=== PATIENT | female | born 1990 | race Caucasian/White ===

== ENCOUNTER 2020-11-11 16:22 | Inpatient (IN) | payer BC ==
--- OUTSIDE RECORDS SUMMARY | 2020-11-11 16:28 | XMS REPORT | Continuity of Care Document ---
:[address] [facility] [place], [place] t Address [address] [place] [address] Care Team Providers Name Role Phone Lab, Fam Pob I Attending Clinician Unavailable Doctor Unassigned, Name Attending Clinician Unavailable Payers Payer Name Policy Type Policy Number Effective Date Expiration Date S ource Problems This patient has no known problems. Allergies, Adverse Reactions, Alerts This patient has no known allergies or adverse reactions. Medications This patient has no known medications. Procedures This patient has no known procedures. Encounters Start End Encounter Admission Attending Care Care Encounter Source Date/Time Date/Time Type Type Clinicians Facility Department ID 2020-04-27 2020-04-27 Laboratory Lab, [facility] [id number] 12:57:24 13:17:24 Only Fam Pob I Health [id number] [place] [id number] Professio [id number] [address] 2020-04-27 2020-04-27 Letter Doctor DEJESUS [id number] 00:00:00 00:00:00 (Out) UnassignedATILIO [id number] [place] [id number] Results This patient has no known results.
[2020-11-11 17:21] LABS: Urine Blood Negative (Negative); Urine Glucose Negative (Negative); Urine Protein Negative (Negative); Urine Specific Gravity >=1.030 (1.005-1.030)
[2020-11-11] MEDS ORDERED: NA CHLORIDE 0.9% 1,000 ML ONE (17:34)
[2020-11-11 17:39] LABS: Urine Specific Gravity/Preg >1.030 (1.005-1.030)
--- NOTE | 2020-11-11 18:32 | RAD REPORT ---
EXAM DESCRIPTION: US - Transvaginal OB - 11/11/2020 6:19 pm CLINICAL HISTORY: ABD PAIN COMPARISON: No comparisons FINDINGS: [place] fluid collection is noted within the fundal endometrium. A definitive gestational sac is not s een. The maternal adnexa and ovaries are within normal limits. Normal Doppler blood flow was demonstrated to both ovaries. No adnexal masses. IMPRESSION: No finding is seen to confirm IUP. Crescent[place] fluid collection is seen in the fundal end ometrium. In the setting of a positive HCG level, the findings would indicate a of unknown location. Interval follow-up HCG levels and follow-up pelvic sonography in 7-10 days would be recommended
[2020-11-11 18:40] LABS: Basophils % 0.2 % (0-1.3); Hematocrit 38.2 % (36.0-45.0); Lymphocytes % 9.3 % (15.3-44.8); MPV 9.4 fL (7.6-11.3); RBC Red Blood Cell Count 4.26 M/uL (3.86-4.86)
[2020-11-11 19:17] LABS: BUN Blood Urea Nitrogen 17 mg/dL (7-18); Bicarbonate 26 mmol/L (21-32); Glucose Level 109 mg/dL (74-106); HCG, Quantitative 2063 mIU/mL (1-3); Potassium 4.1 mmol/L (3.5-5.1); Sodium Level 138 mmol/L (136-145)
--- NOTE | 2020-11-11 19:57 | ER ---
Nurse's Notes [facility] Name: Alisson Montilla Age: 30 yrs Sex: Female : 1990 Arrival Date: 11/11/2020 Time: 16:25 Bed 24 Private MD: Diagnosis: Other specified related conditions, first trimester-ectopic; related conditions, unspecified, first trimester;Pelvic and perineal pain Presentation: 11/11 17:04 Chief complaint: Patient states: RLQ pain started 4 hours ago, feels just like when I jl7 had an ectopic and they had to take my left tube. Coronavirus screen: Client denies travel out of the [place] in the last 14 days. At this time, the client does not indicate any symptoms associated with coronavirus-19. Ebola Screen: No symptoms or risks identified at this time. Initial Sepsis Screen: Does the patient meet any 2 criteria? No. Patient's initial sepsis screen is negative. Does the patient have a suspected source of infection? No. Patient's initial sepsis screen is negative. Risk Assessment: Do you want to hurt yourself or someone else? Patient reports no desire to harm self or others. Onset of symptoms was November 11, 2020 at 13:00. 17:04 Method Of Arrival: Ambulatory [facility] 17:04 Acuity: JUNITO 2 jl7 Triage Assessment: 21:35 GI: Reports lower abdominal pain. 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 - Social history:: Smoking status: Patient denies any tobacco usage or history of. - Family history:: not pertinent. Screenin:34 Abuse screen: Denies threats or abuse. Denies injuries from another. Nutritional ld1 screening: No deficits noted. Tuberculosis screening: No symptoms or risk factors identified. Fall Risk None identified. Assessment: 18:00 General: Appears in no apparent distress. uncomfortable, Behavior is calm, cooperative, ld1 appropriate for age. Pain: Complains of pain in abdomen Pain does not radiate. Pain currently is 9 out of 10 on a pain scale. Quality of pain is described as stabbing, throbbing, Pain began suddenly, Is continuous. Neuro: Level of Consciousness is awake, alert, obeys commands, Oriented to person, place, time, situation. Cardiovascular: Capillary refill < 3 seconds Patient's skin is warm and dry. Respiratory: Airway is patent Respiratory effort is even, unlabored, Respiratory pattern is regular, symmetrical. GI: Abdomen is flat, non-distended. : No signs and/or symptoms were reported regarding the genitourinary system. EENT: No signs and/or symptoms were reported regarding the EENT system. Derm: No signs and/or symptoms reported regarding the dermatologic system. Musculoskeletal: No signs and/or symptoms reported regarding the musculoskeletal system. 18:45 Reassessment: Patient appears in no apparent distress at this time. Patient is alert, ld1 oriented x 3, equal unlabored respirations, skin warm/dry/pink. 20:00 Reassessment: Patient appears in no apparent distress at this time. Patient and/or ld1 family updated on plan of care and expected duration. Pain level reassessed. Patient is alert, oriented x 3, equal unlabored respirations, skin warm/dry/pink. 21:34 Reassessment: Patient appears in no apparent distress at this time. Patient and/or ld1 family updated on plan of care and expected duration. Pain level reassessed. Patient is alert, oriented x 3, equal unlabored respirations, skin warm/dry/pink. Vital Signs: 18:00 BP 118 / 76; Pulse 76; Resp 18; Pulse Ox 100% on R/A; ld1 19:15 BP 132 / 86; Pulse 78; Resp 18; Pulse Ox 100% on R/A; ld1 ED Course: 16:25 Patient arrived in ED. as 16:58 Zenon Bunn MD is Attending Physician. [facility] 17:06 Triage completed. jl7 17:06 Arm band placed on right wrist. Patient placed in an exam room, on a stretcher. jl7 17:11 Myrna Duran, RUI is Primary Nurse. ld1 18:19 US Transvaginal Ob In Process Unspecified. EDMS 18:36 Inserted saline lock: 20 gauge in right antecubital area, using aseptic technique. dh4 Blood collected. 19:55 Delroy Munguia MD is Hospitalizing Provider. [facility] 21:34 Patient has correct armband on for positive identification. Placed in gown. Bed in low ld1 position. Call light in reach. Side rails up X2. hall monitor on. Pulse ox on. NIBP on. 21:34 No provider procedures requiring assistance completed. Patient admitted, IV remains in ld1 place. intact, bleeding controlled, No redness/swelling at site. Administered Medications: 19:49 Drug: NS 0.9% 1000 ml Route: IV; Rate: 1 bolus; Site: right antecubital; ap3 Outcome: 19:56 Decision to Hospitalize by Provider. [facility] 21:[facility] by [facility], via wheelchair, room 270, with chart, Report ld1 called to [facility], RN 21:34 Condition: stable 21:34 Instructed on the need for admit. 21:35 Patient left the ED. ld1 Signatures: Dispatcher [employer] EDMS Zenon Bunn MD MD cha Martinez, Amelia as Leal, Jahala, RN RN jl7 Taylor Damico RN RN ap3 Chris Zapata [facility] Myrna Duran RN RN ld1
--- NOTE | 2020-11-11 19:57 | EDPHYS ---
Physician Documentation [facility] Name: Alisson Montilla Age: 30 yrs Sex: Female : 1990 Arrival Date: 11/11/2020 Time: 16:25 Bed 24 Private MD: JOAO Physician Zenon Bunn HPI: 11/11 17:30 This 30 yrs old Female presents to ER via Ambulatory with complaints of venu Pelvic Pain - 5 wks preg, Nausea. 17:30 This 30 yrs old Female presents to ER via Ambulatory with complaints of venu Pelvic Pain - 5 wks preg, Nausea. 17:30 This 30 yrs old Female presents to ER via Ambulatory with complaints of venu Pelvic Pain - 5 wks preg, Nausea. 17:30 The patient presents to the emergency department with nausea, vomiting, that is venu intermittent. Onset: The symptoms/episode began/occurred just prior to arrival. Possible causes: . The symptoms are aggravated by movement, pressure, The symptoms are alleviated by remaining still. Associated signs and symptoms: Pertinent positives: abdominal pain, nausea. Severity of symptoms: At their worst the symptoms were mild moderate just prior to arrival, in the emergency department the symptoms are unchanged. The patient has experienced a previous episode, many years ago. 19:53 The patient presents with abdominal pain right lower quadrant. Onset: The venu symptoms/episode began/occurred 5 hour(s) ago. The estimated gestational age is 5 weeks. 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 - Social history:: Smoking status: Patient denies any tobacco usage or history of. - Family history:: not pertinent. ROS: 17:34 Constitutional: Negative for fever, chills, and weight loss, Eyes: Negative for injury, venu pain, redness, and discharge, ENT: Negative for injury, pain, and discharge, Neck: Negative for injury, pain, and swelling, Cardiovascular: Negative for chest pain, palpitations, and edema, Respiratory: Negative for shortness of breath, cough, wheezing, and pleuritic chest pain, Back: Negative for injury and pain, : Negative for injury, bleeding, discharge, and swelling, MS/Extremity: Negative for injury and deformity, Skin: Negative for injury, rash, and discoloration, Neuro: Negative for headache, weakness, numbness, tingling, and seizure, Psych: Negative for depression, anxiety, suicide ideation, homicidal ideation, and hallucinations, Allergy/Immunology: Negative for hives, rash, and allergies, Endocrine: Negative for neck swelling, polydipsia, polyuria, polyphagia, and marked weight changes, Hematologic/Lymphatic: Negative for swollen nodes, abnormal bleeding, and unusual bruising. 17:34 Abdomen/GI: Positive for abdominal pain, of the right lower quadrant and left lower quadrant. Exam: 17:34 Constitutional: This is a well developed, well nourished patient who is awake, alert, venu and in no acute distress. Head/Face: Normocephalic, atraumatic. Eyes: Pupils equal round and reactive to light, extra-ocular motions intact. Lids and lashes normal. Conjunctiva and sclera are non-icteric and not injected. Cornea within normal limits. Periorbital areas with no swelling, redness, or edema. ENT: Nares patent. No nasal discharge, no septal abnormalities noted. Tympanic membranes are normal and external auditory canals are clear. Oropharynx with no redness, swelling, or masses, exudates, or evidence of obstruction, uvula midline. Mucous membranes moist. Neck: Trachea midline, no thyromegaly or masses palpated, and no cervical lymphadenopathy. Supple, full range of motion without nuchal rigidity, or vertebral point tenderness. No Meningismus. Chest/axilla: Normal chest wall appearance and motion. Nontender with no deformity. No lesions are appreciated. Cardiovascular: Regular rate and rhythm with a normal S1 and S2. No gallops, murmurs, or rubs. Normal PMI, no JVD. No pulse deficits. Respiratory: Lungs have equal breath sounds bilaterally, clear to auscultation and percussion. No rales, rhonchi or wheezes noted. No increased work of breathing, no retractions or nasal flaring. Back: No spinal tenderness. No costovertebral tenderness. Full range of motion. Skin: Warm, dry with normal turgor. Normal color with no rashes, no lesions, and no evidence of cellulitis. MS/ Extremity: Pulses equal, no cyanosis. Neurovascular intact. Full, normal range of motion. Neuro: Awake and alert, GCS 15, oriented to person, place, time, and situation. Cranial nerves II-XII grossly intact. Motor strength 5/5 in all extremities. Sensory grossly intact. Cerebellar exam normal. Normal gait. 17:34 Abdomen/GI: Inspection: abdomen appears normal, Bowel sounds: normal, Palpation: moderate abdominal tenderness, in the right lower quadrant, rebound tenderness, is not appreciated, voluntary guarding, is elicited in the right lower quadrant, Liver: no appreciated palpable abnormalities, Hernia: not appreciated. Vital Signs: 18:00 BP 118 / 76; Pulse 76; Resp 18; Pulse Ox 100% on R/A; ld1 19:15 BP 132 / 86; Pulse 78; Resp 18; Pulse Ox 100% on R/A; ld1 MDM: 17:10 Patient medically screened. venu 17:36 Differential diagnosis: Nonspecific abd pain, gastritis, cholecystitis, venu gastroenteritis, ectopic . Data reviewed: vital signs, nurses notes, lab test result(s), radiologic studies, ultrasound. Data interpreted: campus monitor: rate is 95 beats/min, rhythm is regular, Pulse oximetry: on room air is 100 %. Counseling: I had a detailed discussion with the patient and/or guardian regarding: the historical points, exam findings, and any diagnostic results supporting the discharge/admit diagnosis, lab results, radiology results. 11/11 16:58 Order name: Basic Metabolic Panel; Complete Time: 19:[address] [facility] 11/11 16:58 Order name: CBC with Diff [facility] 11/11 16:58 Order name: Quantitative Hcg; Complete Time: 19:[address] [facility] 11/11 16:58 Order name: Type And Screen [facility] 11/11 17:20 Order name: Urine Dipstick-Ancillary; Complete Time: 17:35 EDMS 11/11 16:58 Order name: IV Saline Lock; Complete Time: 19:[address] [facility] 11/11 16:58 Order name: Labs collected and sent; Complete Time: 19:19 venu 11/11 16:58 Order name: NPO; Complete Time: 17:[address] [facility] 11/11 16:58 Order name: Urine Dipstick-Ancillary (obtain specimen); Complete Time: 17:[address] [facility] 11/11 16:58 Order name: US Transvaginal Ob; Complete Time: 18:[address] [facility] 11/11 17:21 Order name: Urine --Ancillary (enter results) bd 11/11 17:21 Order name: Urine --Ancillary; Complete Time: 18:39 EDOR 11/11 16:58 Order name: Urine Test (obtain specimen); Complete Time: 17:[address] [facility] Administered Medications: 19:49 Drug: NS 0.9% 1000 ml Route: IV; Rate: 1 bolus; Site: right antecubital; ap3 Disposition Summary: 11/11/20 19:56 Hospitalization Ordered Hospitalization Status: Observation [facility] Provider: Delroy Munguia cha Location[facility] Condition: Fair venu Problem: new venu Symptoms: have improved venu Bed/Room Type: Standard [facility] Room Assignment: 270-(11/11/20 20:02) mw Diagnosis - Other specified related conditions, first trimester - ectopic venu - related conditions, unspecified, first trimester venu - Pelvic and perineal pain venu Forms: - Medication Reconciliation Form venu - SBAR form [facility] Signatures: Dispatcher [employer] EDOR Rox Hernandez RN RN mw Anderson, Corey, MD MD cha Leal, Jahala, RN RN jl7 Taylor Damico RN RN ap3 Corrections: (The following items were deleted from the chart) 18:35 16:59 ABO/RH TYPING+[id number].LAB.BRZ ordered. [facility] EDOR 20:02 19:56 venu ruiz
--- NOTE | 2020-11-11 21:08 | PREOPHP ---
Date of Admission: 11/11/2020 History Of Present Illness: This is a 30-year-old 7, para 2, comes in the emergency room wit h sudden onset of pelvic pain. The patient has a history of a tubal ectopic on the left, w hich required removal of the tube on that side. She has been seeing an infertility expert in [place] Dr. Morel with [facility]. She is on progesterone 400 mg at night and 81 mg of aspirin. Quanti tative level is slightly over 2000. There is no blood in the pelvis. There are no signs of any tuba l enlargement at this point. There is a crescent shaped object in the fundal endometrium. This does not appear to be a normal gestational sac. The possibility for failed or even an early tu bal ectopic that is not able to be seen in the remaining tube remains. Options discussed with the slick may including giving her methotrexate at this point 75 mg suggested. The patient is very hesitant, wishes to be kept overnight for observation. Then they would talk to her doctor in [place] tomorrow , probably go up there, and have an ultrasound and then reassess the situation with her fertility doc tor who is Dr. Morel. Family History: Noncontributory to this situation. Allergies: NO ALLERGIES. Medications: No medicines prior to admission other than Prometrium and baby aspirin. Physical Examination: Vital Signs: All stable. Hematocrit is 38. General: The patient is pleasant, in no acute distress. She says she does not have any pain now, bu t was pain level of about 4 or 5 when she came in. HEENT: Clear. Pupils equal, round, reactive to light and accommodation. Conjunctivae well perfused . No oral, lingual, buccal lesions. Chest and Lungs: According to nursing evaluation are clear. Pelvic: Exam not done. Extremities: Clear. Assessment And Plan: Essentially healthy female with possible early failed or possibly ear ly tubal , which is unable to be visualized at this point. We will get another quantitative level first thing in the morning and then she will contact the doctor in [place] and decide at that point what she wishes to do in. The patient is Rh positive. SANJIV/HERMELINDA Voice ID: [id number]
[2020-11-11 21:36] LABS: Blood Morphology Comment NOT SEEN (NOT SEEN); Platelet Estimate ADEQ
[2020-11-11 21:42] VITALS: O2SAT 100
[2020-11-11] MEDS ORDERED: D5 0.45 NS 1,000 ML IV SCH (21:56)
[2020-11-11] MEDS ORDERED: ACETAMINOPHEN 325 MG TABLET PO PRN (21:56)
[2020-11-11] MEDS ORDERED: MORPHINE 2 MG/ML SYR IV PRN (21:56)
[2020-11-11] MEDS ORDERED: ONDANSETRON 4 MG/2 ML VIAL IV PRN (21:56)
[2020-11-11 22:21] VITALS: BMI 25.7
[2020-11-12] MEDS ORDERED: D5 NS IV ONE (02:38)
[2020-11-12 04:28] LABS: Absolute Lymphocytes (CBC) 2.2 K/uL (0.7-4.9); Basophils % 0.7 % (0-1.3); Hematocrit 35.1 % (36.0-45.0); Lymphocytes % 35.1 % (15.3-44.8); MPV 9.6 fL (7.6-11.3); RBC Red Blood Cell Count 3.91 M/uL (3.86-4.86)
[2020-11-12 04:42] LABS: ALT/SGPT 14 U/L (12-78); AST/SGOT 8 U/L (15-37); Albumin 3.6 g/dL (3.4-5.0); Alkaline Phosphatase 51 U/L (45-117); BUN Blood Urea Nitrogen 10 mg/dL (7-18); Bicarbonate 27 mmol/L (21-32); Bilirubin Direct < 0.1 mg/dL (0-0.2); Bilirubin Total 0.4 mg/dL (0.2-1.0); Glucose Level 134 mg/dL (74-106); Lipase 73 U/L (73-393); Potassium 3.7 mmol/L (3.5-5.1); Protein, Total 6.6 g/dL (6.4-8.2); Sodium Level 140 mmol/L (136-145)
[2020-11-12] MEDS ORDERED: MORPHINE 4 MG/ML SYR IV PRN (07:01)
[2020-11-12 07:49] VITALS: BP 115/57; TEMP 97.7
--- NOTE | 2020-11-12 09:36 | DS ---
Date of Discharge: 11/12/2020 Hospital Course: Ally Vinson is a 30-year-old 7, para 2, thought to have either early preg carolyn failure or possibly early tubal ectopic . She has a history of tubal ectopic pregnanc y on the left, which required removal of her tube. She has been observed overnight. She requested n o analgesics. She is quite alert this morning and in no pain. Her quantitative level has gone from 2000 to 2200. She has every intention of seeing her infertility doctor - Adriel at [facility]. She will call her this morning and go to [place] and get an ultrasound there, and follow up w ith the people in [place]. She was told of course that she can remain in the hospital until she has talked to Dr. Morel if she feels more comfortable that way, but she says she is not in any pain and wishes to go home at this point. She is Rh positive. No other significant lab has been obtained. D iagnosis at this point is positive test, a crescent shaped lesion in the fundus of the uter us, possibly failed , early intrauterine or extrauterine . She is to [facility] in [place] with her infertility doctor later today. SANJIV/HERMELINDA Voice ID: [id number] Report ID: [id number]
== END 2020-11-12 08:37 | disposition home or self-care (01) | DRG 833 ==
LOC: ER 16:22 → ERHOLD 20:07 → 2ND-WC 20:16
PROVIDERS: ADMIT Specialist; ATTEND Specialist
DX: O26.891 Other specified pregnancy related conditions, first trimester (principal)
CPT/HCPCS: 36415; 76817; 80048; 80076; 81003; 81025; 83690; 84702; 85025; 86850; 86900; 86901; 99285; J2270; J7030; J7799